=== PATIENT | female | born 1965 | race Caucasian/White ===

== ENCOUNTER 2022-12-15 19:01 | Emergency (ER) | payer OTHER ==
[2022-12-15] MEDS ORDERED: Ibuprofen 800 MG Tab PO ONE (19:48)
== END 2022-12-15 20:51 | disposition home or self-care (01) ==
LOC: JD.ED 19:01
DX: S82.891A Other fracture of right lower leg, initial encounter for closed fracture (principal); Z88.5 Allergy status to narcotic agent; Z79.899 Other long term (current) drug therapy; X50.1XXA Overexertion from prolonged static or awkward postures, initial encounter; Y93.01 Activity, walking, marching and hiking
CPT/HCPCS: 73610; 99283; A9270